=== PATIENT | female | born 1965 | race Caucasian/White ===

== ENCOUNTER 2018-11-27 14:00 | Inpatient (IN) | payer OTHER ==
[2018-11-27] MEDS ORDERED: DOCUSATE SODIUM 100 MG CAP PO (16:30)
[2018-11-27] MEDS ORDERED: NACL 0.9% 3 ML SYG IV (16:30)
[2018-11-27] MEDS: SOD CHLORIDE 0.45% 1,000 ML IV (16:30)
[2018-11-27] MEDS ORDERED: hydrALAzine 20 MG INJ IV (16:30)
[2018-11-27] MEDS: THIAMINE 100 MG TAB PO ×3 (16:30→19:04)
[2018-11-27] MEDS ORDERED: NITROGLYCERIN (SL) 0.4 MG TAB SL (16:30)
[2018-11-27] MEDS ORDERED: ONDANSETRON 4 MG INJ IV (16:30)
[2018-11-27] MEDS ORDERED: ALBUTEROL/IPRATROPIUM (NEB) 3 ML AMP HHN (16:30)
[2018-11-27] MEDS ORDERED: MAGNESIUM HYDROXIDE 30ML CUP PO (16:30)
[2018-11-27 18:09] LABS: INR 0.93; PROTIME 12.6 Sec (11.9-14.9)
[2018-11-27 18:27] LABS: FREE T4 (FREE THYROXINE) 0.98 ng/dl (0.64-1.79)
[2018-11-27] MEDS: MULTIVITAMINS 10 ML, FOLIC ACID 1 MG in SOD CHLORIDE 0.9% 1,000 ML IVPB (18:59)
[2018-11-27] MEDS: LORAZEPAM 2 MG INJ IV ×3 (19:09→23:13)
[2018-11-27] MEDS: CHLORDIAZEPOXIDE 25 MG CAP PO (20:24)
[2018-11-27] MEDS ORDERED: HEPARIN 5,000 UNIT/1 ML VIAL SC (21:00)
[2018-11-27] MEDS: ACETAMINOPHEN 325 MG TAB PO (22:41)
[2018-11-27 23:54] LABS: ADD UMIC NO; UR ASCORBIC ACID 20 mg/dL (NEGATIVE); UR BILIRUBIN (Dip) NEGATIVE (NEGATIVE); UR BLOOD (Dip) NEGATIVE (NEGATIVE); UR CLARITY SLIGHTLY CLOUDY (CLEAR); UR COLOR YELLOW (YELLOW); UR GLUCOSE (Dip) NEGATIVE (NEGATIVE); UR KETONES (Dip) NEGATIVE (NEGATIVE); UR LEUKOCYTE ESTERASE (Dip) NEGATIVE Leu/ul (NEGATIVE); UR MUCUS FEW /HPF (NONE SEEN); UR NITRITE (Dip) NEGATIVE (NEGATIVE); UR RBC 1 /HPF (0-5); UR SPECIFIC GRAVITY (Dip) 1.025 (1.003-1.030); UR SQUAMOUS EPITHELIAL CELL FEW /HPF (FEW); UR TOTAL PROTEIN (Dip) NEGATIVE (NEGATIVE); UR UROBILINOGEN (Dip) 2+ mg/dL (NEGATIVE); UR WBC 3 /HPF (0-5)
[2018-11-28] MEDS: SOD CHLORIDE 0.45% 1,000 ML IV ×2 (05:50→19:10)
[2018-11-28] MEDS: HYDROCODONE/APAP (5/325) TAB PO ×2 (05:58→16:21)
[2018-11-28] MEDS: LORAZEPAM 2 MG INJ IV ×4 (07:00→23:57)
[2018-11-28] MEDS: morphine SULFATE/PF (2 MG/2 ML) SYG IV ×3 (08:21→21:49)
[2018-11-28] MEDS: CHLORDIAZEPOXIDE 25 MG CAP PO ×3 (08:21→21:43)
[2018-11-28] MEDS: THIAMINE 100 MG TAB PO (08:22)
[2018-11-28] MEDS: NICOTINE (21 MG/24 HR) PATCH TRANSDERM (08:22)
[2018-11-28] MEDS: MULTIVITAMINS 10 ML, FOLIC ACID 1 MG in SOD CHLORIDE 0.9% 1,000 ML IVPB (08:22)
[2018-11-28 09:03] LABS: ADD MAN DIFF? NO
[2018-11-28 09:07] LABS: BASOPHILS % 0.3 % (0.0-2.0); HEMATOCRIT 33.9 % (37.0-47.0); HEMOGLOBIN 11.7 g/dl (12.0-16.0); LYMPHOCYTES # 2.7 10^3/ul (0.8-2.9); LYMPHOCYTES % 29.2 % (15.0-51.0); MEAN CORPUSCULAR HEMOGLOBIN 34.9 pg (29.0-33.0); MEAN CORPUSCULAR HGB CONC 34.5 g/dl (32.0-37.0); MEAN CORPUSCULAR VOLUME 101.2 fl (82.0-101.0); MEAN PLATELET VOLUME 9.5 fl (7.4-10.4); MONOCYTE # 0.8 10^3/ul (0.3-0.9); MONOCYTES % 8.3 % (0.0-11.0); NEUTROPHIL # 5.6 10^3/ul (1.6-7.5); PLATELET COUNT 178 10^3/UL (140-415); RED BLOOD COUNT 3.35 10^6/ul (4.20-5.40); RED CELL DISTRIBUTION WIDTH 12.7 % (11.5-14.5)
[2018-11-28 09:07] LABS: WHITE BLOOD COUNT 9.1 10^3/ul (4.8-10.8)
[2018-11-28 09:24] LABS: ANION GAP 13 (5-13); BLOOD UREA NITROGEN 23 mg/dl (7-20); CALCIUM 9.1 mg/dl (8.4-10.2); CARBON DIOXIDE 23 mmol/L (21-31); CHLORIDE 106 mmol/L (97-110); CHOL/HDL RATIO 6.1 RATIO; CHOLESTEROL 197 mg/dl (100-200); Estimated GFR > 60 mL/min (>60); GLUCOSE 115 mg/dl (70-220); HDL CHOLESTEROL 32 mg/dl (37-92); LDL CHOLESTEROL,CALCULATED 129 mg/dl; MAGNESIUM 1.8 mg/dl (1.7-2.5); PHOSPHORUS 3.7 mg/dl (2.5-4.9); POTASSIUM 3.3 mmol/L (3.5-5.1); SODIUM 142 mmol/L (135-144); TRIGLYCERIDES 178 mg/dl (0-149)
[2018-11-28] MEDS: VENLAFAXINE 75 MG TABLET PO (21:00)
[2018-11-28] MEDS: GABAPENTIN 400 MG CAP PO (21:43)
[2018-11-29] MEDS: morphine SULFATE/PF (2 MG/2 ML) SYG IV ×4 (01:58→21:08)
[2018-11-29 05:55] LABS: ADD MAN DIFF? NO
[2018-11-29 05:59] LABS: BASOPHIL # 0.1 10^3/ul (0.0-0.1); BASOPHILS % 0.6 % (0.0-2.0); EOSINOPHILS # 0.1 10^3/ul (0.0-0.5); HEMATOCRIT 36.2 % (37.0-47.0); HEMOGLOBIN 12.4 g/dl (12.0-16.0); LYMPHOCYTES # 3.6 10^3/ul (0.8-2.9); LYMPHOCYTES % 45.7 % (15.0-51.0); MEAN CORPUSCULAR HEMOGLOBIN 34.7 pg (29.0-33.0); MEAN CORPUSCULAR HGB CONC 34.3 g/dl (32.0-37.0); MEAN CORPUSCULAR VOLUME 101.4 fl (82.0-101.0); MEAN PLATELET VOLUME 9.8 fl (7.4-10.4); MONOCYTE # 0.4 10^3/ul (0.3-0.9); MONOCYTES % 5.2 % (0.0-11.0); NEUTROPHIL # 3.8 10^3/ul (1.6-7.5); NEUTROPHILS % 47.2 % (39.0-77.0); PLATELET COUNT 176 10^3/UL (140-415); RED BLOOD COUNT 3.57 10^6/ul (4.20-5.40); RED CELL DISTRIBUTION WIDTH 12.5 % (11.5-14.5)
[2018-11-29 06:20] LABS: ANION GAP 8 (5-13); BLOOD UREA NITROGEN 16 mg/dl (7-20); CARBON DIOXIDE 24 mmol/L (21-31); CHLORIDE 105 mmol/L (97-110); CREATININE 0.57 mg/dl (0.44-1.00); Estimated GFR > 60 mL/min (>60); GLUCOSE 113 mg/dl (70-220); POTASSIUM 3.4 mmol/L (3.5-5.1); SODIUM 137 mmol/L (135-144)
[2018-11-29] MEDS: LORAZEPAM 2 MG INJ IV ×3 (07:35→19:56)
[2018-11-29] MEDS: SOD CHLORIDE 0.45% 1,000 ML IV (08:26)
[2018-11-29] MEDS: NICOTINE (21 MG/24 HR) PATCH TRANSDERM (08:40)
[2018-11-29] MEDS: GABAPENTIN 400 MG CAP PO ×3 (08:41→21:07)
[2018-11-29] MEDS: CHLORDIAZEPOXIDE 25 MG CAP PO ×3 (08:41→21:07)
[2018-11-29] MEDS: THIAMINE 100 MG TAB PO (08:41)
[2018-11-29] MEDS: VENLAFAXINE 75 MG TABLET PO ×3 (08:41→21:07)
[2018-11-29] MEDS: MULTIVITAMINS 10 ML, FOLIC ACID 1 MG in SOD CHLORIDE 0.9% 1,000 ML IVPB (08:52)
[2018-11-29] MEDS: HYDROCODONE/APAP (5/325) TAB PO ×2 (11:43→17:46)
[2018-11-29] MEDS: ACETAMINOPHEN 325 MG TAB PO (14:05)
[2018-11-29] MEDS: MULTIVITAMINS THERAPEUTIC TAB PO (16:03)
[2018-11-29] MEDS: FOLIC ACID 1 MG TAB PO (16:03)
[2018-11-29] MEDS: POTASSIUM CHLORIDE (SR) 20 MEQ TAB PO (16:04)
[2018-11-29] MEDS ORDERED: morphine SULFATE/PF (2 MG/2 ML) SYG IV (16:30)
[2018-11-29] MEDS: LOPERAMIDE 2 MG CAP PO (19:55)
[2018-11-29] MEDS: traZODone 100 MG TAB PO (21:07)
[2018-11-30] MEDS: INFLUENZA VIRUS VACCINE 0.5 ML (DISPENSING) IM* (02:53)
[2018-11-30] MEDS: LOPERAMIDE 2 MG CAP PO ×2 (02:53→08:44)
[2018-11-30] MEDS ORDERED: VITAMIN A & D 5 GM OINT PACKET TOP (03:03)
[2018-11-30] MEDS: HYDROCODONE/APAP (5/325) TAB PO ×3 (03:04→13:02)
[2018-11-30 06:41] LABS: ADD MAN DIFF? NO
[2018-11-30 06:45] LABS: BASOPHIL # 0.1 10^3/ul (0.0-0.1); BASOPHILS % 1.2 % (0.0-2.0); EOSINOPHILS # 0.2 10^3/ul (0.0-0.5); HEMATOCRIT 35.4 % (37.0-47.0); HEMOGLOBIN 11.4 g/dl (12.0-16.0); LYMPHOCYTES % 39.4 % (15.0-51.0); MEAN CORPUSCULAR HEMOGLOBIN 34.8 pg (29.0-33.0); MEAN CORPUSCULAR HGB CONC 32.2 g/dl (32.0-37.0); MEAN CORPUSCULAR VOLUME 107.9 fl (82.0-101.0); MEAN PLATELET VOLUME 9.9 fl (7.4-10.4); MONOCYTE # 0.3 10^3/ul (0.3-0.9); MONOCYTES % 5.7 % (0.0-11.0); NEUTROPHIL # 2.5 10^3/ul (1.6-7.5); NEUTROPHILS % 50.1 % (39.0-77.0); PLATELET COUNT 148 10^3/UL (140-415); RED BLOOD COUNT 3.28 10^6/ul (4.20-5.40); RED CELL DISTRIBUTION WIDTH 12.8 % (11.5-14.5)
[2018-11-30 06:45] LABS: WHITE BLOOD COUNT 5.1 10^3/ul (4.8-10.8)
[2018-11-30 06:52] LABS: POSITIVE DIFF @See below
[2018-11-30 07:18] LABS: ANION GAP 9 (5-13); BLOOD UREA NITROGEN 16 mg/dl (7-20); CALCIUM 8.3 mg/dl (8.4-10.2); CARBON DIOXIDE 22 mmol/L (21-31); CHLORIDE 105 mmol/L (97-110); CREATININE 0.61 mg/dl (0.44-1.00); Estimated GFR > 60 mL/min (>60); GLUCOSE 121 mg/dl (70-220); POTASSIUM 3.5 mmol/L (3.5-5.1); SODIUM 136 mmol/L (135-144)
[2018-11-30] MEDS: VENLAFAXINE 75 MG TABLET PO (08:44)
[2018-11-30] MEDS: THIAMINE 100 MG TAB PO (08:45)
[2018-11-30] MEDS: CHLORDIAZEPOXIDE 25 MG CAP PO ×2 (08:46→12:22)
[2018-11-30] MEDS: FOLIC ACID 1 MG TAB PO (08:46)
[2018-11-30] MEDS: MULTIVITAMINS THERAPEUTIC TAB PO (08:47)
[2018-11-30] MEDS: NICOTINE (21 MG/24 HR) PATCH TRANSDERM (08:48)
[2018-11-30] MEDS: morphine SULFATE/PF (2 MG/2 ML) SYG IV (08:57)
[2018-11-30] MEDS: GABAPENTIN 400 MG CAP PO ×2 (10:25→12:22)
== END 2018-11-30 14:05 | disposition home or self-care (01) | DRG 552 ==
LOC: PP2 14:00 → 5EC 11-29 12:11 → PP2 15:12
PROVIDERS: Internal Medicine
DX: S32.049A Unspecified fracture of fourth lumbar vertebra, initial encounter for closed fracture (principal); K62.5 Hemorrhage of anus and rectum; E87.1 Hypo-osmolality and hyponatremia; F33.2 Major depressive disorder, recurrent severe without psychotic features; M54.5 Low back pain; Z59.0 Homelessness; Z72.89 Other problems related to lifestyle; I10 Essential (primary) hypertension; F43.10 Post-traumatic stress disorder, unspecified; M51.24 Other intervertebral disc displacement, thoracic region; M48.56XG Collapsed vertebra, not elsewhere classified, lumbar region, subsequent encounter for fracture with delayed healing
CPT/HCPCS: 72146; 72148; 80048; 80061; 81001; 81003; 83036; 83735; 84100; 84439; 84443; 85025; 85610; 85730; 87086; 97162; 97167; 97530

== ENCOUNTER 2019-04-20 23:56 | Emergency (ER) | payer OTHER ==
[2019-04-21 01:00] LABS: ADD MAN DIFF? NO
[2019-04-21 01:01] LABS: BASOPHIL # 0.1 10^3/ul (0.0-0.1); BASOPHILS % 0.8 % (0.0-2.0); EOSINOPHILS # 0.1 10^3/ul (0.0-0.5); EOSINOPHILS % 1.5 % (0.0-7.0); HEMATOCRIT 39.7 % (37.0-47.0); HEMOGLOBIN 13.8 g/dl (12.0-16.0); LYMPHOCYTES # 3.4 10^3/ul (0.8-2.9); LYMPHOCYTES % 50.8 % (15.0-51.0); MEAN CORPUSCULAR HEMOGLOBIN 34.2 pg (29.0-33.0); MEAN CORPUSCULAR HGB CONC 34.8 g/dl (32.0-37.0); MEAN CORPUSCULAR VOLUME 98.3 fl (82.0-101.0); MEAN PLATELET VOLUME 9.3 fl (7.4-10.4); MONOCYTE # 0.4 10^3/ul (0.3-0.9); MONOCYTES % 5.6 % (0.0-11.0); NEUTROPHIL # 2.7 10^3/ul (1.6-7.5); PLATELET COUNT 126 10^3/UL (140-415); RED BLOOD COUNT 4.04 10^6/ul (4.20-5.40); RED CELL DISTRIBUTION WIDTH 12.4 % (11.5-14.5)
[2019-04-21 01:01] LABS: WHITE BLOOD COUNT 6.6 10^3/ul (4.8-10.8)
[2019-04-21 01:20] LABS: ALANINE AMINOTRANSFERASE 37 IU/L (13-69); ALBUMIN 4.4 g/dl (3.3-4.9); ALBUMIN/GLOBULIN RATIO 1.51; ALKALINE PHOSPHATASE 88 IU/L (42-121); ANION GAP 6 (5-13); ASPARTATE AMINO TRANSFERASE 35 IU/L (15-46); BILIRUBIN,INDIRECT 0.6 mg/dl (0-1.1); BILIRUBIN,TOTAL 0.6 mg/dl (0.2-1.3); BLOOD UREA NITROGEN 31 mg/dl (7-20); CALCIUM 9.8 mg/dl (8.4-10.2); CARBON DIOXIDE 30 mmol/L (21-31); CHLORIDE 102 mmol/L (97-110); CREATININE 1.14 mg/dl (0.44-1.00); Estimated GFR 49 mL/min (>60); GLUCOSE 88 mg/dl (70-220); LIPASE 269 U/L (23-300); POTASSIUM 4.2 mmol/L (3.5-5.1); SODIUM 138 mmol/L (135-144); TOTAL PROTEIN 7.3 g/dl (6.1-8.1)
[2019-04-21 01:38] LABS: ADD UMIC YES; UR AMORPHOUS CRYSTAL FEW /HPF (NONE SEEN); UR ASCORBIC ACID NEGATIVE (NEGATIVE); UR BILIRUBIN (Dip) NEGATIVE (NEGATIVE); UR BLOOD (Dip) NEGATIVE (NEGATIVE); UR CLARITY CLOUDY (CLEAR); UR COLOR YELLOW (YELLOW); UR GLUCOSE (Dip) NEGATIVE (NEGATIVE); UR KETONES (Dip) NEGATIVE (NEGATIVE); UR LEUKOCYTE ESTERASE (Dip) TRACE Leu/ul (NEGATIVE); UR NITRITE (Dip) NEGATIVE (NEGATIVE); UR RBC 3 /HPF (0-5); UR SPECIFIC GRAVITY (Dip) 1.025 (1.003-1.030); UR SQUAMOUS EPITHELIAL CELL FEW /HPF (FEW); UR TOTAL PROTEIN (Dip) NEGATIVE (NEGATIVE); UR UROBILINOGEN (Dip) 1+ mg/dL (NEGATIVE); UR WBC 21 /HPF (0-5)
[2019-04-21] MEDS: IBUPROFEN 600 MG TAB PO ×2 (01:45→01:56)
== END 2019-04-21 04:38 | disposition home or self-care (01) ==
LOC: E/R 23:56
DX: S32.010A Wedge compression fracture of first lumbar vertebra, initial encounter for closed fracture (principal); I10 Essential (primary) hypertension; F17.210 Nicotine dependence, cigarettes, uncomplicated; N28.9 Disorder of kidney and ureter, unspecified; S32.030A Wedge compression fracture of third lumbar vertebra, initial encounter for closed fracture; T74.21XA Adult sexual abuse, confirmed, initial encounter; S32.040A Wedge compression fracture of fourth lumbar vertebra, initial encounter for closed fracture; S32.050A Wedge compression fracture of fifth lumbar vertebra, initial encounter for closed fracture; Y07.50 Unspecified non-family member, perpetrator of maltreatment and neglect
CPT/HCPCS: 36415; 74176; 80053; 81001; 83690; 85025; 99284-25

== ENCOUNTER 2019-05-17 16:43 | Emergency (ER) | payer OTHER ==
[2019-05-17 19:27] LABS: ADD MAN DIFF? NO
[2019-05-17] MEDS: ONDANSETRON 4 MG INJ IV (19:27)
[2019-05-17] MEDS: KETOROLAC 15 MG INJ IV (19:28)
[2019-05-17] MEDS: SOD CHLORIDE 0.9% 500 ML IV (19:29)
[2019-05-17 19:31] LABS: BASOPHILS % 0.5 % (0.0-2.0); EOSINOPHILS # 0.1 10^3/ul (0.0-0.5); EOSINOPHILS % 1.6 % (0.0-7.0); HEMATOCRIT 34.9 % (37.0-47.0); HEMOGLOBIN 12.4 g/dl (12.0-16.0); LYMPHOCYTES # 2.4 10^3/ul (0.8-2.9); MEAN CORPUSCULAR HEMOGLOBIN 34.1 pg (29.0-33.0); MEAN CORPUSCULAR HGB CONC 35.5 g/dl (32.0-37.0); MEAN CORPUSCULAR VOLUME 95.9 fl (82.0-101.0); MEAN PLATELET VOLUME 9.2 fl (7.4-10.4); MONOCYTE # 0.4 10^3/ul (0.3-0.9); MONOCYTES % 6.1 % (0.0-11.0); NEUTROPHIL # 2.9 10^3/ul (1.6-7.5); NEUTROPHILS % 50.6 % (39.0-77.0); PLATELET COUNT 133 10^3/UL (140-415); RED BLOOD COUNT 3.64 10^6/ul (4.20-5.40); RED CELL DISTRIBUTION WIDTH 12.1 % (11.5-14.5)
[2019-05-17 19:31] LABS: WHITE BLOOD COUNT 5.8 10^3/ul (4.8-10.8)
[2019-05-17 19:40] LABS: ADD UMIC YES; UR ASCORBIC ACID NEGATIVE (NEGATIVE); UR BILIRUBIN (Dip) NEGATIVE (NEGATIVE); UR BLOOD (Dip) NEGATIVE (NEGATIVE); UR CLARITY CLEAR (CLEAR); UR COLOR YELLOW (YELLOW); UR GLUCOSE (Dip) NEGATIVE (NEGATIVE); UR KETONES (Dip) TRACE mg/dL (NEGATIVE); UR LEUKOCYTE ESTERASE (Dip) TRACE Leu/ul (NEGATIVE); UR NITRITE (Dip) NEGATIVE (NEGATIVE); UR RBC 1 /HPF (0-5); UR SPECIFIC GRAVITY (Dip) 1.017 (1.003-1.030); UR SQUAMOUS EPITHELIAL CELL FEW /HPF (FEW); UR TOTAL PROTEIN (Dip) NEGATIVE (NEGATIVE); UR UROBILINOGEN (Dip) 1+ mg/dL (NEGATIVE); UR WBC 7 /HPF (0-5)
[2019-05-17 19:49] LABS: BARBITURATES Negative (NEGATIVE); BENZODIAZEPINES Negative (NEGATIVE); CANNABINOIDS Negative (NEGATIVE); COCAINE Negative (NEGATIVE); OPIATES Negative (NEGATIVE)
[2019-05-17 19:50] LABS: ALANINE AMINOTRANSFERASE 44 IU/L (13-69); ALBUMIN 4.2 g/dl (3.3-4.9); ALBUMIN/GLOBULIN RATIO 1.31; ALKALINE PHOSPHATASE 96 IU/L (42-121); ANION GAP 10 (5-13); ASPARTATE AMINO TRANSFERASE 51 IU/L (15-46); BILIRUBIN,INDIRECT 0.8 mg/dl (0-1.1); BILIRUBIN,TOTAL 0.8 mg/dl (0.2-1.3); BLOOD UREA NITROGEN 28 mg/dl (7-20); CARBON DIOXIDE 24 mmol/L (21-31); CHLORIDE 103 mmol/L (97-110); CREATININE 0.76 mg/dl (0.44-1.00); Estimated GFR > 60 mL/min (>60); GLUCOSE 99 mg/dl (70-220); LIPASE 72 U/L (23-300); POTASSIUM 3.5 mmol/L (3.5-5.1); SODIUM 137 mmol/L (135-144); TOTAL PROTEIN 7.4 g/dl (6.1-8.1)
[2019-05-17 19:51] LABS: ETHANOL < 10.0 mg/dl (0-0)
[2019-05-17 19:59] LABS: AMPHETAMINE/METHAMPHETAMINE POSITIVE (NEGATIVE)
[2019-05-17 20:03] LABS: TROPONIN-I < 0.012 ng/ml (0.000-0.120)
[2019-05-17] MEDS: CEPHALEXIN 500 MG CAP PO (20:15)
== END 2019-05-17 20:53 | disposition home or self-care (01) ==
LOC: E/R 16:43
DX: E86.0 Dehydration (principal); F15.10 Other stimulant abuse, uncomplicated; N39.0 Urinary tract infection, site not specified; I10 Essential (primary) hypertension
CPT/HCPCS: 36415; 71045; 80053; 80307; 81001; 83690; 84484; 85025; 93005; 96361; 96374; 96375; 99285-25

== ENCOUNTER 2019-05-17 20:47 | Emergency (ER) | payer SELFPAY, OTHER | END 2019-05-17 22:37 | disposition left against medical advice (07) | LOC: FTE 20:47 | DX: Z53.21 Procedure and treatment not carried out due to patient leaving prior to being seen by health care provider (principal) ==

== ENCOUNTER 2019-05-29 19:06 | Emergency (ER) | payer OTHER ==
[2019-05-29 22:55] LABS: ADD MAN DIFF? NO
[2019-05-29 22:57] LABS: WHITE BLOOD COUNT 10.5 10^3/ul (4.8-10.8)
[2019-05-29 22:57] LABS: BASOPHILS % 0.3 % (0.0-2.0); EOSINOPHILS # 0.1 10^3/ul (0.0-0.5); EOSINOPHILS % 0.6 % (0.0-7.0); HEMATOCRIT 37.9 % (37.0-47.0); HEMOGLOBIN 12.9 g/dl (12.0-16.0); LYMPHOCYTES # 3.1 10^3/ul (0.8-2.9); LYMPHOCYTES % 29.8 % (15.0-51.0); MEAN CORPUSCULAR HEMOGLOBIN 34.2 pg (29.0-33.0); MEAN CORPUSCULAR VOLUME 100.5 fl (82.0-101.0); MEAN PLATELET VOLUME 9.4 fl (7.4-10.4); MONOCYTE # 0.7 10^3/ul (0.3-0.9); MONOCYTES % 6.9 % (0.0-11.0); NEUTROPHIL # 6.5 10^3/ul (1.6-7.5); NEUTROPHILS % 62.1 % (39.0-77.0); PLATELET COUNT 154 10^3/UL (140-415); RED BLOOD COUNT 3.77 10^6/ul (4.20-5.40); RED CELL DISTRIBUTION WIDTH 13.1 % (11.5-14.5)
[2019-05-29 23:18] LABS: ALANINE AMINOTRANSFERASE 16 IU/L (13-69); ALBUMIN 4.4 g/dl (3.3-4.9); ALBUMIN/GLOBULIN RATIO 1.25; ALKALINE PHOSPHATASE 86 IU/L (42-121); ANION GAP 11 (5-13); ASPARTATE AMINO TRANSFERASE 24 IU/L (15-46); BILIRUBIN,INDIRECT 0.8 mg/dl (0-1.1); BILIRUBIN,TOTAL 0.8 mg/dl (0.2-1.3); BLOOD UREA NITROGEN 23 mg/dl (7-20); CALCIUM 9.4 mg/dl (8.4-10.2); CARBON DIOXIDE 26 mmol/L (21-31); CHLORIDE 99 mmol/L (97-110); CREATININE 1.82 mg/dl (0.44-1.00); Estimated GFR 29 mL/min (>60); GLUCOSE 107 mg/dl (70-220); POTASSIUM 3.3 mmol/L (3.5-5.1); SODIUM 136 mmol/L (135-144); TOTAL PROTEIN 7.9 g/dl (6.1-8.1)
[2019-05-29 23:20] LABS: ACETAMINOPHEN < 10.0 ug/ml (10.0-30.0); ETHANOL < 10.0 mg/dl (0-0); SALICYLATE < 1.0 mg/dl (5.0-30.0)
[2019-05-30 00:02] LABS: ADD UMIC NO; UR ASCORBIC ACID NEGATIVE (NEGATIVE); UR BACTERIA FEW /HPF (NONE SEEN); UR BILIRUBIN (Dip) NEGATIVE (NEGATIVE); UR BLOOD (Dip) NEGATIVE (NEGATIVE); UR CLARITY SLIGHTLY CLOUDY (CLEAR); UR COLOR YELLOW (YELLOW); UR GLUCOSE (Dip) NEGATIVE (NEGATIVE); UR KETONES (Dip) NEGATIVE (NEGATIVE); UR LEUKOCYTE ESTERASE (Dip) NEGATIVE Leu/ul (NEGATIVE); UR MUCUS FEW /HPF (NONE SEEN); UR NITRITE (Dip) NEGATIVE (NEGATIVE); UR RBC 2 /HPF (0-5); UR SPECIFIC GRAVITY (Dip) 1.011 (1.003-1.030); UR TOTAL PROTEIN (Dip) NEGATIVE (NEGATIVE); UR UROBILINOGEN (Dip) NEGATIVE (NEGATIVE); UR WBC 3 /HPF (0-5)
[2019-05-30] MEDS: ONDANSETRON 4 MG INJ IV (00:18)
[2019-05-30] MEDS: KETOROLAC 30 MG INJ IV (00:18)
[2019-05-30] MEDS: SOD CHLORIDE 0.9% 1,000 ML IV (00:18)
[2019-05-30 01:23] LABS: BARBITURATES Negative (NEGATIVE); BENZODIAZEPINES Negative (NEGATIVE); CANNABINOIDS Negative (NEGATIVE); COCAINE Negative (NEGATIVE); OPIATES Negative (NEGATIVE)
[2019-05-30 02:27] LABS: AMPHETAMINE/METHAMPHETAMINE Positive (NEGATIVE)
== END 2019-05-30 03:19 | disposition home or self-care (01) ==
LOC: E/R 05-30 03:19
DX: R51 Headache (principal); I10 Essential (primary) hypertension; F17.210 Nicotine dependence, cigarettes, uncomplicated; R40.2142 Coma scale, eyes open, spontaneous, at arrival to emergency department; R40.2252 Coma scale, best verbal response, oriented, at arrival to emergency department; R40.2362 Coma scale, best motor response, obeys commands, at arrival to emergency department
CPT/HCPCS: 36415; 80053; 80307; 81001; 81003; 81025; 85025; 96374; 96375; 99284-25